=== PATIENT | female | born 1975 | race Caucasian/White ===

== ENCOUNTER 2021-04-29 00:09 | Inpatient (IN) | payer OTHER ==
[2021-04-29 00:25] VITALS: BMI 26.5
[2021-04-29 01:17] LABS: URINE APPEARANCE CLOUDY; URINE BILIRUBIN NEGATIVE (NEGATIVE); URINE COLOR YELLOW; URINE GLUCOSE (UA) NEGATIVE (NEGATIVE); URINE KETONE NEGATIVE (NEGATIVE); URINE LEUK ESTERASE NEGATIVE (NEGATIVE); URINE NITRITE NEGATIVE (NEGATIVE); URINE PROTEIN NEGATIVE (NEGATIVE)
[2021-04-29 01:59] LABS: BASO % 0.7 % (0-2.0); EOS % 0.8 % (0-4.5); HEMATOCRIT 37.3 % (32.4-45.2); HEMOGLOBIN 12.7 GM/dL (10.7-15.3); LYMPH % 20.1 % (8-40); MCH 30.2 pg (25.7-33.7); MEAN CELL VOLUME 88.8 fl (80-96); MEAN PLT VOLUME 7.5 fl (7.5-11.1); MONO % 8.1 % (3.8-10.2); NEUT % 70.3 % (42.8-82.8); PLATELET COUNT 319 10^3/uL (134-434); RDW 13.8 % (11.6-15.6); WHITE BLOOD COUNT 5.6 K/mm3 (4.0-10.0)
[2021-04-29 02:06] LABS: INR 1.06 (0.83-1.09); PROTHROMBIN TIME (PATIENT) 11.9 SEC (9.7-13.0)
[2021-04-29 02:08] LABS: ACTIVATED PTT 27.2 SECONDS (25.2-36.5)
[2021-04-29 02:21] LABS: BLOOD UREA NITROGEN 13.4 mg/dL (7-18); CALCIUM 9.1 mg/dL (8.5-10.1)
[2021-04-29 02:24] LABS: CREATININE 0.7 mg/dL (0.55-1.3)
[2021-04-29 02:53] LABS: BILIRUBIN,TOTAL 1.1 mg/dL (0.2-1)
[2021-04-29 04:59] LABS: URIC ACID 3.4 mg/dL (2.6-7.2)
[2021-04-29 08:30] LABS: BASO % 0.8 % (0-2.0); EOS % 1.2 % (0-4.5); HEMATOCRIT 33.2 % (32.4-45.2); HEMOGLOBIN 11.2 GM/dL (10.7-15.3); LYMPH % 31.9 % (8-40); MCHC 33.7 g/dl (32.0-36.0); MONO % 9.6 % (3.8-10.2); NEUT % 56.5 % (42.8-82.8); PLATELET COUNT 280 10^3/uL (134-434); RBC 3.73 M/mm3 (3.60-5.2); RDW 13.3 % (11.6-15.6); WHITE BLOOD COUNT 3.1 K/mm3 (4.0-10.0)
[2021-04-29 08:44] LABS: BLOOD UREA NITROGEN 8.9 mg/dL (7-18); CALCIUM 8.1 mg/dL (8.5-10.1); MAGNESIUM 2.2 mg/dL (1.8-2.4)
[2021-04-29 08:47] LABS: CREATININE 0.6 mg/dL (0.55-1.3); PHOSPHOROUS 3.4 mg/dL (2.5-4.9)
[2021-04-29 08:49] LABS: TOT PROT 6.3 g/dl (6.4-8.2)
[2021-04-29 09:48] LABS: ALBUMIN 3.1 g/dl (3.4-5.0)
[2021-04-29 10:27] LABS: BILIRUBIN,TOTAL 1.6 mg/dL (0.2-1)
[2021-04-29 11:05] VITALS: BP 103/60; PULSE 50; TEMP 97.9
== END 2021-04-29 11:28 | disposition short-term general hospital (02) ==
LOC: JER 00:09 → JERBED 02:51
PROVIDERS: ADMIT Internal Medicine; ATTEND Internal Medicine
DX: K83.09 Other cholangitis (principal); K80.10 Calculus of gallbladder with chronic cholecystitis without obstruction; R00.1 Bradycardia, unspecified; R10.11 Right upper quadrant pain; K83.8 Other specified diseases of biliary tract; R68.83 Chills (without fever); R79.89 Other specified abnormal findings of blood chemistry; R11.2 Nausea with vomiting, unspecified; R94.5 Abnormal results of liver function studies
CPT/HCPCS: 36415; 76705-TC; 80053; 80061; 81003; 83690; 83735; 84100; 84550; 84703; 85025; 85610; 85730; 86850; 86900; 86901; 87086; 93005; 93010; 99285-25; C9803; J0131; U0003; U0005

== ENCOUNTER 2022-09-19 14:39 | Emergency (ER) | payer OTHER ==
[2022-09-19 14:47] VITALS: BP 113/68; PULSE 71; RESP 17; TEMP 98.2; BMI 27.1
[2022-09-19] MEDS ORDERED: KETOROLAC TROMETHAMINE 15 MG/ML VIAL IM ONE (16:38)
[2022-09-19] MEDS ORDERED: KETOROLAC TROMETHAMINE 15 MG/ML VIAL ONE (16:58)
[2022-09-19 18:09] LABS: THROAT:GRP A STREP NOT DETECTED (NOTDETECTED)
== END 2022-09-19 19:01 | disposition home or self-care (01) ==
LOC: JERFT 14:39
PROC: 3E0233Z Introduction of Anti-inflammatory into Muscle, Percutaneous Approach (ICD-10-PCS; principal; 2022-09-19)
DX: R07.89 Other chest pain (principal); R07.0 Pain in throat; R05.9 Cough, unspecified; J06.9 Acute upper respiratory infection, unspecified; Z20.822 Contact with and (suspected) exposure to COVID-19
CPT/HCPCS: 0241U-QW; 71046-TC-FY; 87070; 87651; 99284-25